=== PATIENT | male | born 1995 | race Caucasian/White ===

== ENCOUNTER 2024-01-02 03:42 | Emergency (ER) | payer MEDICAID, OTHER ==
[~2024-01-02] VITALS: Ht 162.6 cm; Wt 63.5 kg
[2024-01-02] MEDS ORDERED: HYDROCODONE/APAP 5/325MG TABLET ONE (04:02)
[2024-01-02] MEDS: HYDROCODONE/APAP 5/325MG TABLET PO ONE (04:04)
[2024-01-02] MEDS ORDERED: CEPH500C2 PO (07:00)
[2024-01-02] MEDS ORDERED: SULF1TAB48 PO (07:00)
[2024-01-02] MEDS ORDERED: SULFAMETH/TRIMETH 800/160 MG 1 UDTAB TABLET ONE (07:06)
[2024-01-02] MEDS ORDERED: CEPHALEXIN MONOHYDRATE 500 MG CAPSULE PO ONE (07:06)
[2024-01-02] MEDS ORDERED: KETOROLAC TROMETHAMINE 15 MG/ML VIAL ONE (07:06)
[2024-01-02] MEDS: KETOROLAC TROMETHAMINE 15 MG/ML VIAL IV ONE (07:16)
[2024-01-02] MEDS: CEPHALEXIN MONOHYDRATE 500 MG CAPSULE PO ONE (07:16)
[2024-01-02] MEDS: SULFAMETH/TRIMETH 800/160 MG 1 UDTAB TABLET PO ONE (07:16)
[2024-01-02 07:20] VITALS: BP 121/72; TEMP 98; O2SAT 98
== END 2024-01-02 07:20 | disposition home or self-care (01) ==
LOC: ER 04:05
DX: M79.661 Pain in right lower leg (principal); M79.89 Other specified soft tissue disorders
CPT/HCPCS: 99285; 96374; 93971; 73590; J1885